=== PATIENT | male | born 1930 | race Caucasian/White ===

== ENCOUNTER → 2018-11-01 | Outpatient (CLI) | payer MEDICARE ==
[~2018-11-01] MED LIST: ASPIRIN81 M1 PO; CARDI-OMEGA1000 MG PO; CLARITIN10 MG PO; DAYPRO600 M1 PO; LEVOTHYROXINE0.05 MG PO; MEDROL DOSEPAK4 MG PO; MULTI VITAMINS1 TAB PO; OSTEO-BI-FLEX 21 TAB PO; THYROID MED PO; VICODIN 5/500 505 MG PO; VITAMIN B-125000 MC1 PO; VOLTAREN50 M1 PO; ZOCOR40 MG PO; ZYRTEC10 M1 PO
== END | disposition home or self-care (01) ==
LOC: ORTHO 01:36
DX: M17.11 Unilateral primary osteoarthritis, right knee (principal)

== ENCOUNTER 2018-12-07 10:55 | Emergency (ER) | payer MEDICARE ==
[~2018-12-07] VITALS: Ht 175.2 cm; Wt 68.0 kg
--- NOTE | ~2018-12-07 | EKG ---
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
[2018-12-07 10:56] VITALS: BP 130/77
[2018-12-07 11:27] LABS: EOS # 0.2 10*3/uL (0.0-0.4); EOS % 3.2 % (1.0-4.0); HEMATOCRIT 42.4 % (42.0-52.0); HEMOGLOBIN 14.1 g/dl (14.0-18.0); LYMPH % 17.2 % (27.0-41.0); MEAN CELL VOLUME 90.6 fl (80.0-94.0); MEAN CORPUSCULAR HGB 30.1 pg (27.0-31.0); MEAN CORPUSCULAR HGB CONC 33.3 g/dl (33.0-37.0); MEAN PLATELET VOLUME 10.1 fl (9.6-12.3); MONO # 0.8 10*3/uL (0.1-1.0); MONO % 13.3 % (3.0-9.0); NEUT % 65.8 % (47.0-73.0); PLATELET COUNT AUTOMATED 221 10*3/uL (130-400); RED BLOOD COUNT 4.68 10*6/uL (4.50-5.90); RED CELL DISTRI WIDTH 13.6 % (0-14.5)
[2018-12-07 11:41] LABS: ACT PARTIAL THROMBO TIME 22.5 SECONDS (20.8-31.5)
[2018-12-07 11:42] LABS: ALBUMIN 3.4 gm/dl (3.1-4.5); ALKALINE PHOSPHATASE 119 U/L (45-117); BUN 11 mg/dl (7-24); CHLORIDE 108 mmol/L (98-107); CREATININE 0.91 mg/dL (0.70-1.30); LIPASE 52 U/L (73-393); POTASSIUM 4.4 mmol/L (3.5-5.1); SGOT/AST 17 IU/L (3-35); SGPT/ALT 17 U/L (12-78); SODIUM 140 mmol/L (136-145); TROPONIN I 0.016 ng/ml (<0.045)
== END 2018-12-07 12:32 | disposition home or self-care (01) ==
LOC: ED 10:55
PROVIDERS: Emergency Medicine
DX: R19.7 Diarrhea, unspecified (principal); R79.1 Abnormal coagulation profile; Z79.899 Other long term (current) drug therapy; Z79.82 Long term (current) use of aspirin; Z85.048 Personal history of other malignant neoplasm of rectum, rectosigmoid junction, and anus

== ENCOUNTER → 2018-12-08 | Outpatient (CLI) | payer MEDICARE | END | disposition home or self-care (01) | LOC: LAB 14:24 | DX: K52.9 Noninfective gastroenteritis and colitis, unspecified (principal) ==